=== PATIENT | male | born 1960 ===

== ENCOUNTER → 2025-06-30 | Outpatient (CLI) | payer OTHER ==
[2025-06-30 15:49] LABS: ALANINE AMINOTRANSFERASE(ML) 28.0 U/L (12-78); ALBUMIN(ML) 4.1 g/dL (3.4-5.0); CREATININE SERUM 1.35 mg/dL (0.59-1.40); EST GFR, NON-AA 53.0 (>/=60)
== END | disposition home or self-care (01) ==
LOC: LAB 15:05
PROVIDERS: ATTEND Nurse Practitioner Family
DX: E87.6 Hypokalemia (principal)
CPT/HCPCS: 36415; 80053